=== PATIENT | female | born 1995 | race Caucasian/White ===

== ENCOUNTER 2022-05-26 18:03 | Emergency (ER) | payer OTHER ==
[2022-05-26 20:08] LABS: SARS-CoV-2 NAA Rapid Test Not Detected (NotDetected)
== END 2022-05-26 20:22 | disposition home or self-care (01) ==
LOC: ERS 18:03
DX: B34.9 Viral infection, unspecified (principal); J02.9 Acute pharyngitis, unspecified; Z20.822 Contact with and (suspected) exposure to COVID-19
CPT/HCPCS: 87081; 87430; 99283

== ENCOUNTER 2023-05-30 15:52 | Emergency (ER) | payer OTHER, SELFPAY ==
[2023-05-30] MEDS ORDERED: predniSONE 20 MG TAB ONE (16:56)
== END 2023-05-30 18:30 | disposition home or self-care (01) ==
LOC: ERS 15:52
DX: J10.1 Influenza due to other identified influenza virus with other respiratory manifestations (principal)
CPT/HCPCS: 71045; 87804; J7512

== ENCOUNTER 2024-01-12 11:35 | Day surgery (SDC) | payer BC ==
[~2024-01-12 11:35] MED LIST: Iron Sucrose Complex 500 MG in Sodium Chloride 0.9% 250 ML 250 ML IVPB SCH
[2024-01-12] MEDS ORDERED: Acetaminophen 500 MG TAB ONE (11:41)
[2024-01-12] MEDS: Acetaminophen 500 MG TAB PO SCH (11:43)
[2024-01-12 17:23] VITALS: BP 115/65; TEMP 98
== END 2024-01-12 17:14 | disposition home or self-care (01) ==
LOC: ONC/OP 11:35
PROVIDERS: ATTEND Obstetrics & Gynecology
DX: O99.019 Anemia complicating pregnancy, unspecified trimester (principal); Z3A.00 Weeks of gestation of pregnancy not specified; Z88.0 Allergy status to penicillin
CPT/HCPCS: 96365; 96366; J1756; J7050